=== PATIENT | female | born 1980 ===

== ENCOUNTER 2023-09-08 10:24 | Outpatient (AMB) | payer MEDICAID, SELFPAY ==
--- NOTE | 2023-09-08 11:45 | A.OFFVIS_ITS ---
Intake Intake Visit Reasons: Low back pain Assessment & Plan Assessment & Plan (1) Back pain: Code(s): M54.9 - Dorsalgia, unspecified Plan Dear Adali, Thank you for referring Mrs Jurado to our office today. She is a very nice 42-year-old female who presents today for evaluation of low back pain with occasional pain radiating down into her right leg into her outer calf. She used to work at a [employer] and spent a lot of time standing and that seems to have been part of what was aggravating her symptoms. Unfortunately she was let go from that job because of the pain and things have not gotten better. Getting out of bed in the morning is very difficult. Standing up straight she will feel stiffness in her back. His increasing activity will also make things worse. She tried [id number] medications like Aleve and Tylenol. She has yet to try any dedicated conservative treatment. She has an MRI done at [facility] showing some [id number] degenerative disc disease. PMH: She has asthma, she is obese but other than that she is relatively healthy Social hx: She does not smoke, drink or use any recreational drugs Medications: Cyclobenzaprine, diclofenac, vitamins, sumatriptan, asthma inhaler Allergies: None Physical exam: Awake alert oriented no acute distress, full strength bilateral reflexes are normal Imaging review: Lumbar MRI done at [facility] shows mild disc degeneration at L4-5 with facet arthropathy on the right at L4-5. There is hmbn-hx-retktvxr lateral recess stenosis. Impression: 42-year-old female obese with back pain occasionally radiating into the right leg who has mild disc degeneration at L4-5 with facet arthropathy. She has some mild narrowing of the lateral recess but nothing significant. I think some of the inflammation from the facet joint may be causing some of the irritation of the L5 nerve root. Her disc quality overall is actually quite good throughout her lumbar spine. I do not think any of this raises the level of needing surgery. At this point I am going to recommend she try physical therapy and a dedicated conservative management trial. I will send her to Dr. Kam for consideration of a facet block at L4-5 or any other injection that he thinks might be helpful to this patient. Thank you for allowing us to care for your patient. The total time spent with this visit with this patient was 45 minutes reviewing history, physical exam, lumbar imaging review, and implementation of treatment plan or further diagnostic testing Braden Gamez MD,PhD [facility] Orders: Orders PT Evaluation and Treatment Today M54.9 - Dorsalgia, unspecified Referrals Physiatry Referral M54.9 - Dorsalgia, unspecified Coding Level of Care Code New Pt Level 4 (97670) Diagnoses Back pain M54.9
== END 2023-09-08 11:47 | disposition home or self-care (01) ==
PROVIDERS: PCP Nurse Practitioner Family; Referring Provider Nurse Practitioner Family; Visit Provider Physician Assistant
DX: M54.9 Dorsalgia, unspecified (principal)
CPT/HCPCS: 99204

== ENCOUNTER → 2023-09-08 10:24 | Outpatient (BNVA) | payer MEDICAID, SELFPAY | PROVIDERS: PCP Nurse Practitioner Family; Visit Provider Physician Assistant | DX: M54.9 Dorsalgia, unspecified (principal) | CPT/HCPCS: 99212 ==